=== PATIENT | female | born 1995 | race African-American/Black ===

== ENCOUNTER 2017-07-18 09:56 | Emergency (ER) | payer SELFPAY ==
[~2017-07-18] VITALS: Ht 149.9 cm; Wt 56.7 kg
[2017-07-18 10:01] VITALS: BP 122/65; PULSE 80; RESP 16; TEMP 98.9; O2SAT 100
--- NOTE | 2017-07-18 10:19 | PD ---
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 This patient complains of vaginal bleeding. She's had intermittent vaginal bleeding for the last 30 days. She denies fever or discharge or pelvic pain. Symptom severity is moderate. No alleviating factors. No history of pelvic problems. No alleviating factors. PFSH Past Medical History Asthma: Yes Immunizations Current: Yes Tetanus Vaccination: > 5 Years ?: Not Past Surgical History Surgical History: No Previous Surgery Social History Alcohol Use: Yes (SOCIAL) Tobacco Use: No Substance Use: No Allergies-Medications (Allergen,Severity, Reaction): Coded Allergies: No Known Allergies (Unverified , 07/18/17) Reported Meds & Prescriptions Reported Meds & Active Scripts Active No Active Prescriptions or Reported Medications Review of Systems General / Constitutional: No: Fever Eyes: No: Visual changes HENT: No: Headaches Cardiovascular: No: Chest Pain or Discomfort Respiratory: No: Shortness of Breath Gastrointestinal: No: Abdominal Pain Genitourinary: Positive: Vaginal Bleeding, No: Dysuria Musculoskeletal: No: Pain Skin: No Rash Neurologic: No: Weakness Psychiatric: No: Depression Endocrine: No: Polydipsia Hematologic/Lymphatic: No: Easy Bruising Physical Exam Narrative GENERAL: Well-nourished, well-developed patient in no apparent distress. SKIN: Focused skin assessment reveals no rash and nodules. Skin is Warm and dry. HEAD: Atraumatic. Normocephalic. EYES: Pupils equal and round. No scleral icterus. No injection or drainage. ENT: No nasal bleeding or discharge. Mucous membranes pink and moist. NECK: Trachea midline. No JVD. CARDIOVASCULAR: Regular rate and rhythm. No murmur appreciated. RESPIRATORY: No accessory muscle use. Clear to auscultation. Breath sounds equal bilaterally. GASTROINTESTINAL: Abdomen soft, non-tender, nondistended. Hepatic and splenic margins not palpable. MUSCULOSKELETAL: No obvious deformities. No clubbing. No cyanosis. No edema. NEUROLOGICAL: Awake and alert. No obvious cranial nerve deficits. Motor grossly within normal limits. Normal speech. PSYCHIATRIC: Appropriate mood and affect; insight and judgment normal. Pelvic: No blood in the vault. No discharge. No cervical motion tenderness. Data Data Last Documented VS Vital Signs Date Time Temp Pulse Resp B/P (MAP) Pulse Ox O2 Delivery O2 Flow Rate FiO2 07/18/17 10:01 98.9 80 16 122/65 (84) 100 Orders Orders Complete Blood Count With Diff (07/18/17 10:14) Beta Hcg (Quant/Titer) (07/18/17 10:14) Labs Laboratory Tests Test 07/18/17 10:20 White Blood Count 9.4 TH/MM3 Red Blood Count 4.34 MIL/MM3 Hemoglobin 13.6 GM/DL Hematocrit 40.0 % Mean Corpuscular Volume 92.3 FL Mean Corpuscular Hemoglobin 31.3 PG Mean Corpuscular Hemoglobin Concent 34.0 % Red Cell Distribution Width 13.1 % Platelet Count 304 TH/MM3 Mean Platelet Volume 7.5 FL Neutrophils (%) (Auto) 56.4 % Lymphocytes (%) (Auto) 30.0 % Monocytes (%) (Auto) 10.8 % Eosinophils (%) (Auto) 2.3 % Basophils (%) (Auto) 0.5 % Neutrophils # (Auto) 5.4 TH/MM3 Lymphocytes # (Auto) 2.8 TH/MM3 Monocytes # (Auto) 1.0 TH/MM3 Eosinophils # (Auto) 0.2 TH/MM3 Basophils # (Auto) 0.0 TH/MM3 CBC Comment DIFF FINAL Differential Comment Human Chorionic Gonadotropin, Quant LESS THAN 1 MIU/ML MDM Medical Decision Making Medical Screen Exam Complete: Yes Emergency Medical Condition: Yes Medical Record Reviewed: Yes Differential Diagnosis Ectopic , dysfunctional uterine bleeding, fibroids Narrative Course I have reviewed the patient's electronic medical record. 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
[2017-07-18 10:30] LABS: AUTOMATED NEUTROPHIL # 5.4 TH/MM3 (1.8-7.7); BASOPHIL % 0.5 % (0.0-2.0); EOSINOPHIL # 0.2 TH/MM3 (0-0.4); EOSINOPHIL % 2.3 % (0.0-4.0); LYMPHOCYTE # 2.8 TH/MM3 (1.0-4.8); MEAN CELL VOLUME 92.3 FL (80.0-100.0); MEAN CORPUSCULAR HEMOGLOBIN 31.3 PG (27.0-34.0); MONO % 10.8 % (0.0-8.0); NEUT % 56.4 % (16.0-70.0); PLATELET COUNT 304 TH/MM3 (150-450); RED BLOOD COUNT 4.34 MIL/MM3 (4.00-5.30); RED CELL DISTRIBUTION WIDTH 13.1 % (11.6-17.2); WHITE BLOOD COUNT 9.4 TH/MM3 (4.0-11.0)
[2017-07-18 10:32] LABS: HEMO FLAGS DIFF FINAL
[2017-07-18 10:51] LABS: BETA HCG QUANT LESS THAN 1 MIU/ML (0-5)
[2017-07-18 12:16] VITALS: BP 120/63
== END 2017-07-18 12:17 | disposition home or self-care (01) ==
LOC: PHED 09:56
DX: N93.8 Other specified abnormal uterine and vaginal bleeding (principal); Z87.09 Personal history of other diseases of the respiratory system
CPT/HCPCS: 84702; 85025; 99284